=== PATIENT | female | born 1990 | race Caucasian/White ===

== ENCOUNTER 2016-05-11 21:21 | Emergency (ER) | payer MEDICAID, SELFPAY ==
[~2016-05-11 21:21] MED LIST: Iopamidol 370 76% 100 ML VIAL ONE; Sodium Chloride 0.9% 1,000 ML BAG ONE
[2016-05-11 22:32] LABS: #Basophils 0.1 thou/uL (0.0-0.2); #Eosinphils 0.2 thou/uL (0.0-0.7); #Lymphocytes 3.2 thou/uL (1.20-3.40); #Monocytes 0.5 thou/uL (0.11-0.59); #Neutrophils 2.7 thou/uL (1.40-6.50); %Basophils 1.1 % (0.0-1.0); %Eosinophils 2.5 % (0.0-10.0); %Lymphocytes 48.4 % (21.0-51.0); %Monocytes 7.1 % (0.0-10.0); %Neutrophils 40.9 % (42.0-75.0); Hemoglobin 14.6 g/dL (12.0-16.0); Mean Corpuscular HGB CONC 34.7 g/dL (32.0-36.0); Mean Corpuscular Hemoglobin 30.4 pg (27.0-31.0); Mean Corpuscular Volume 87.6 fl (81.0-99.0); Mean Platelet Volume 7.3 fL (7.4-10.4); Platelet Count 286 thou/uL (130-400); RBC Distribution Width 11.6 % (11.5-14.5); Red Blood Cell (RBC) Count 4.81 mill/uL (4.20-5.40); White Blood Cell (WBC) Count 6.5 thou/uL (4.8-10.8)
[2016-05-11 22:45] LABS: BHCG - Serum NEGATIVE (NEGATIVE); Pregs Control Background? CLEAR/WHITE (CLR/WHITE); Pregs Control Bar Appear? YES (CONTROL BAR)
[2016-05-11 22:51] LABS: ALT (SGPT) 12 U/L (0-55); AST (SGOT) 16 U/L (5-34); Albumin 4.5 g/dL (3.5-5.0); Alkaline Phosphatase 65 U/L (40-150); Anion Gap 17 mmol/L (10-20); BUN (Urea Nitrogen) 16 mg/dL (7.0-18.7); Bilirubin, Total 0.4 mg/dL (0.2-1.2); Calc. Creatinine Clearance 0 mL/min (70-130); Carbon Dioxide 24 mmol/L (22-29); Chloride 104 mmol/L (98-107); Estimated GFR-MDRD 86; Globulin 2.6 g/dL (2.4-3.5); Glucose 84 mg/dL (70-105); Potassium 3.9 mmol/L (3.5-5.1); Protein, Total 7.1 g/dL (6.0-8.3); Sodium 141 mmol/L (136-145)
--- NOTE | 2016-05-11 23:59 | ERRECORD ---
[facility] EMERGENCY RECORD HPI FALL (23:02 BPIC) CHIEF COMPLAINT: Patient presents for evaluation of fall. HISTORIAN: History provided by patient, pt fell from standing onto the left lateral chest wall 2 days prior to today. sharp pain, worse with breathing and now she has abdominal pain as well. worse with movement and with breathing. LOCATION: Symptoms are localized. QUALITY: Pain is sharp in nature. TIME COURSE: Sudden onset of symptoms, Symptoms are worsening. ROS (23:03 BPIC) CONSTITUTIONAL: Negative constitutional review of systems, Historian denies chills, denies fever. EYES: Negative eye review of systems. ENT: Negative ears, nose, throat review of systems. CARDIOVASCULAR: Negative cardiovascular review of systems, Historian denies chest pain, denies palpitations. RESPIRATORY: Negative respiratory review of systems, Historian denies cough, denies shortness of breath. GI: Negative gastrointestinal review of systems, Historian denies abdominal pain, denies constipation, denies diarrhea. MUSCULOSKELETAL: Historian reports injury. SKIN: Negative skin review of systems. NEUROLOGIC: Negative neurologic review of systems. ENDOCRINE: Negative endocrine review of systems. HEMO/LYMPHATIC: Normal hematologic/lymphatic system review. PSYCHIATRIC: Negative psychiatric review of systems. NOTES: All other ROS is negative except as listed in HPI. PAST MEDICAL HISTORY MEDICAL HISTORY: Notes: "born with a heart murmur", Flu vaccine not up to date, Tetanus not up to date, Pneumococcal vaccine not up to date. VERIFIED 05/11/16. (21:51 EROG) FEMALE SURGICAL HISTORY: Patient has no surgical history. VERIFIED 05/11/16. (21:51 EROG) PSYCHIATRIC HISTORY: Psychiatric history includes, anxiety, depression. VERIFIED 05/11/16. (21:51 EROG) SOCIAL HISTORY: Patient currently uses tobacco, Patient smokes cigarettes, Patient smokes 1/2 packs per day, Patient denies alcohol use, Patient currently uses drugs, abuses marijuana, Last used: 1.5 weeks. VERIFIED 05/11/16. NO LONGER USES MARIJUANA. (21:51 EROG) NOTES: I have reviewed and agree with the PMH/PSxH/FamHx/SocHx obtained by the nurse. (23:03 BPIC) KNOWN ALLERGIES KNDA &a-1R&a+25V*p+0X*d4938V*c202B*c15G*c2P*p-0X&a-25V&a+1R Name: Cindy Nguyen : 1990 F25 MedRec: [id number] AcctNum: [id number] Prepared: MonMay 11, 2016 23:49 by Interface Page 1 of 3 pMD [facility] EMERGENCY RECORD CURRENT MEDICATIONS (21:48 EROG) None VITAL SIGNS VITAL SIGNS: BP: 102/73, Pulse: 88, Resp: 16, Temp: 98.5 (Tympanic), Pain: 10 (Constant), O2 sat: 99 on Room Air, Time: 05/11/2016 21:43. (21:43 EROG) BP: 116/75, Pulse: 80, O2 sat: 99 on Room Air, Time: 05/11/2016 22:33. (22:33 EROG) BP: 125/82, Pulse: 86, Resp: 20, Pain: 3, O2 sat: 100 on Room Air, Time: 05/11/2016 23:10. (23:10 EROG) BP: 115/78, Pulse: 90, Resp: 18, Temp: 98.0, Pain: 3, O2 sat: 100 on RA, Time: 05/11/2016 23:42. (23:42 EROG) PHYSICAL EXAM (23:03 BPIC) CONSTITUTIONAL: Vital signs reviewed, Patient appears non toxic, Patient alert and oriented to person, place and time, Pt is in no apparent distress. HEAD: Head exam included findings of head atraumatic, normocephalic. EYES: Eye exam included findings of eyelids normal to inspection, Pupils equally round and reactive to light, Extraocular muscles intact. ENT: ENT exam normal, Nose exam normal, no nasal deformity, no bleeding from nares, Pharynx exam normal, Mouth exam normal, mucous membranes moist. NECK: Neck exam included findings of normal range of motion, Trachea midline. RESPIRATORY CHEST: Respiratory and chest exam normal, Breath sounds clear, No wheezing, No rales, Chest exam included findings of chest movement symmetrical, Chest expansion equal, Tenderness, moderate, to the left anterior chest, to the left lateral chest. CARDIOVASCULAR: Cardiovascular assessment normal, Cardiovascular exam included findings of heart rate regular rate and rhythm, Heart sounds normal, equal radial and DP pulses. ABDOMEN FEMALE: Abdominal exam included findings of abdomen tender, to the left upper quadrant, moderate intensity, Bowel sounds normal, no mass, no pulsatile masses, no peritoneal signs. BACK: Back exam included findings of normal inspection, range of motion normal, no costovertebral angle tenderness. UPPER EXTREMITY: Upper extremity exam included findings of inspection normal, Range of motion normal. LOWER EXTREMITY: Lower extremity exam included findings of inspection normal, Range of motion normal. NEURO: Neuro exam findings include patient oriented to person, place and time, Speech normal, no focal motor deficits, no focal sensory deficits. SKIN: Skin exam included findings of skin warm, dry, and normal &a-1R&a+25V*p+0X*d8404L*c202B*c15G*c2P*p-0X&a-25V&a+1R Name: Cindy Nguyen : 1990 F25 MedRec: [id number] AcctNum: [id number] Prepared: MonMay 11, 2016 23:49 by Interface Page 2 of 3 pMD [facility] EMERGENCY RECORD in color. PSYCHIATRIC: Psychiatric exam included findings of patient oriented to person place and time, Normal affect. RADIOLOGYINTERPRETATION (23:27 BPIC) ABDOMEN: Abdomen/pelvis CT scan, with contrast shows, Other findings: splenic contusion without surrounding hematoma or free fluid. MEDICATION ADMINISTRATION SUMMARY Drug Name: morphine injection, Dose Ordered: 4 mg, Route: IV Push, Status: Given, Time: 22:32 05/11/2016, Drug Name: *sodium chloride 0.9 % intravenous, Dose Ordered: 1 L, Route: IV Fluid Infusion, Status: Given, Time: 22:30 05/11/2016, *Additional information available in notes, Detailed record available in Medication Service section. DOCTOR NOTES (23:28 BPIC) TEXT: abd/chest wall contusion with splenic contusion as well. no laceration or active extravasation. tramadol and fu with pcp. I discussed the diagnosis with the patient prior to discharge. All questions were answered. There is no indication for admission currently and the patient will follow up with a primary care physician. Any pertinent labs or imaging were reviewed and dicussed with the patient. If any new or emergent symptoms occur, the patient will return to the emergency department. PROBLEM LIST No recorded problems DIAGNOSIS (23:29 BPIC) FINAL: PRIMARY: abdominal and chest wall contusion, ADDITIONAL: Splenic contusion. PRESCRIPTION (23:29 BPIC) traMADol: TABLET : 50 mg : ORAL : Quantity: 50 Unit: mg Route: ORAL Schedule: every 6 hours PRN Dispense: 20 Unit: tab(s) May substitute. Refills: No Refills . NOTES: No Refills. DISPOSITION PATIENT: Disposition Type: Discharge, Disposition: *Discharge Home, Condition: Good. (23:29 BPIC) Patient left the department. (23:47 EROG) [place]: BPIC=MD Meme, Jamison EROG=YING Fraser, Bhanu &a-1R&a+25V*p+0X*[id number]*c202B*c15G*c2P*p-0X&a-25V&a+1R Name: Cindy Nguyen : 1990 F25 MedRec: [id number] AcctNum: [id number] Prepared: MonMay 11, 2016 23:49 by Interface Page 3 of 3 pMD MTDD
--- NOTE | 2016-05-12 00:07 | PICIS ---
[facility] EMERGENCY RECORD TRIAGE (MonMay 11, 2016 21:48 EROG) TRIAGE NOTES: ACHING PAIN TO LEFT UPPER RIBS. FELL ON SIDE OF TUB TWO DAYS AGO. (MonMay 11, 2016 21:48 EROG) PATIENT: NAME: Cindy Nguyen, AGE: 25, GENDER: female, : Mon1990, TIME OF GREET: MonMay 11, 2016 21:21, PREFERRED LANGUAGE: Yemeni, ETHNICITY: Not or , FALL RISK: NO, ECODE BILLING MAP: [facility], SSN: [id number], KG WEIGHT: 52.16, HEIGHT/LENGTH: 152.40cm, BMI: 22.46, , , PERSON ID: [id number], PCP: NONE. (MonMay 11, 2016 21:48 EROG) Zip Code: [facility], PHONE: . (22:23) COMPLAINT: FALL, RIB PAIN. (MonMay 11, 2016 21:48 EROG) ADMISSION: URGENCY: 3 Urgent, ADMISSION SOURCE: Home, TRANSPORT: CAR, BED: ED -04. (MonMay 11, 2016 21:48 EROG) ASSESSMENT: Assessment: PAIN TO LEFT RIBS, Symptoms began 2 days ago. (21:51 EROG) PAIN: Patient complains of pain described as, aching, on a scale 0-10 patient rates pain as 10, Pain is constant, Aggravating factors:, Aggravating factors include LAYING ON SIDE. DEEP BREATHS, No relieving factors. (21:51 EROG) SIRS SCORING: Heart Rate 55-109 (0), Temp range 96.8-101.1 (0), respiratory rate 12-24 (0), Mental Status altered: no (0), Infection or Suspected Infection: No. (21:51 EROG) PROVIDERS: TRIAGE NURSE: Bhanu Guillermo RN. (MonMay 11, 2016 21:48 EROG) VITAL SIGNS: BP 102/73, Pulse 88, Resp 16, Temp 98.5, (Tympanic), Pain 10, (Constant), O2 Sat 99, on Room Air, Time 05/11/2016 21:43. (21:43 EROG) KNOWN ALLERGIES KNDA CURRENT MEDICATIONS (21:48 EROG) None VITAL SIGNS VITAL SIGNS: BP: 102/73, Pulse: 88, Resp: 16, Temp: 98.5 (Tympanic), Pain: 10 (Constant), O2 sat: 99 on Room Air, Time: 05/11/2016 21:43. (21:43 EROG) BP: 116/75, Pulse: 80, O2 sat: 99 on Room Air, Time: 05/11/2016 22:33. (22:33 EROG) BP: 125/82, Pulse: 86, Resp: 20, Pain: 3, O2 sat: 100 on Room Air, Time: 05/11/2016 23:10. (23:10 EROG) BP: 115/78, Pulse: 90, Resp: 18, Temp: 98.0, Pain: 3, O2 sat: 100 on RA, Time: 05/11/2016 23:42. (23:42 EROG) NURSING ASSESSMENT: RESPIRATORY/CHEST TRAUMA (21:53 EROG) CONSTITUTIONAL: Patient arrives ambulatory, Gait steady, History obtained from patient, Patient appears, in distress due to &a-1R&a+25V*p+0X*t6338T*c202B*c15G*c2P*p-0X&a-25V&a+1R Name: Cindy Nguyen : 1990 F25 MedRec: [id number] AcctNum: [id number] Prepared: MonMay 12, 2016 02:43 by Interface Page 1 of 9 pMD [facility] EMERGENCY RECORD pain, Patient cooperative, Patient alert, Oriented to person, place and time, Skin warm, Skin dry, Skin normal in color, Mucous membranes pink, Mucous membranes moist, Patient is well-groomed, Patient complains of left rib pain. MECHANISM OF INJURY: Mechanism of injury fall, from height less than 3 feet, landing on left side, fell when getting out of tub. PAIN: aching pain, to the left chest, on a scale 0-10 patient rates pain as 10, Pain exacerbated by, lying down, Pain exacerbated by, deep breaths, Nothing has been tried to alleviate the pain. RESPIRATORY/CHEST: Breath sounds clear, Respiratory assessment findings include respiratory effort easy, Respirations regular, Conversing normally, Neck and chest exam findings include trachea midline, Chest expansion equal, Chest movement symmetrical. THORACIC TRAUMA: Thoracic trauma assessment findings include chest movement symmetrical, Inspection findings include swelling, to left ribs, Light reddened vertical line on left ribs. NURSING PROCEDURE: DISCHARGE NOTE (23:42 EROG) DISCHARGE: Patient discharged to home, ambulating without assistance, family driving, accompanied by //partner, Summary of Care printed/ provided, Patient requested and was provided an electronic copy of Discharge Instructions, Transition record given to patient, Discharge instructions given to patient, Discharge instructions given to NAHUM MONTES DE OCA-JORDAN OTHER, Simple or moderate discharge teaching performed, by Angela GUILLERMO RN, Prescriptions given and instructions on side effects given, Name of prescription(s) given: TRAMADOL, Medication reconciliation form given, and reviewed with patient, Above person(s) verbalized understanding of discharge instructions and follow-up care. BELONGINGS: Belongings remain with patient, Valuables remain with patient. VITAL SIGNS: BP: 115, / 78, Pulse: 90, Resp: 18, Temp: 98.0, Pain: 3, O2 sat: 100, on: RA, Time: 1140. NURSING PROCEDURE: IV (22:28 AGAN) PATIENT IDENITIFIER: Patient actively involved in identification process, Patient's identity verified by patient stating name, Patient's identity verified by patient stating date, Patient's identity verified by hospital ID bracelet. IV SITE 1: IV therapy indicated for hydration, IV therapy indicated for medication administration, IV established, to the left antecubital, using a 20 gauge catheter, in one attempt, Saline lock established, Labs drawn at time of placement, labeled in the presence of the patient and sent to lab. NURSING PROCEDURE: NURSE NOTES (22:46 EROG) NURSES NOTES: Patient in no apparent distress, Patient states &a-1R&a+25V*p+0X*b8330J*c202B*c15G*c2P*p-0X&a-25V&a+1R Name: Cindy Nguyen : 1990 F25 MedRec: [id number] AcctNum: [id number] Prepared: [facility] May 12, 2016 02:43 by Interface Page 2 of 9 pMD [facility] EMERGENCY RECORD decreased pain, Notes: PATIENT STATES PAIN HAS DECREASED DOWN TO 3-4. IV INFUSING WELL. WAITING FOR SERUM HCG RESULT PRIOR TO CT. AT BEDSIDE. NURSING PROCEDURE: TRANSPORT TO TESTS PATIENT IDENTIFIER: Patient actively involved in identification process, Patient's identity verified by patient stating name, Patient's identity verified by patient stating date, Patient's identity verified by hospital ID bracelet. (22:57 EROG) TRANSPORT TO TESTS: Transport indicated to facilitate diagnosis, Patient transported to CT scan, via cart, Accompanied by x-ray communications technician. (22:57 EROG) FOLLOW-UP: After procedure, patient returned to emergency department. (23:06 EROG) ORDER DETAILS Order Name: CBC with Differential, Status: Active, Time: 22:16 05/11/2016, User: RATNA, - Ordered for: MD Valentine Bryan, - Entered by: MD Valentine Bryan - [facility] May 11, 2016 22:16, - Quantity: 1, Order Name: Comprehensive Metabolic Panel, Status: Active, Time: 22:16 05/11/2016, User: RATNA, - Ordered for: MD Valentine Bryan, - Entered by: MD Valentine Bryan - [facility] May 11, 2016 22:16, - Quantity: 1, Order Name: CT Chest Abd Pelvis W Con(Trauma), Status: Active, Time: 22:04 05/11/2016, User: RATNA, - Ordered for: MD Valentine Bryan, - Entered by: MD Valentine Bryan - [facility] May 11, 2016 22:04, - Quantity: 1, Order Name: Test, Serum (BHCG), Status: Active, Time: 22:04 05/11/2016, User: RATNA, - Ordered for: MD Valentine Bryan, - Entered by: MD Valentine Bryan - [facility] May 11, 2016 22:04, - Quantity: 1, Order Name: SALINE LOCK, Status: Done, Time: 22:41 05/11/2016, User: MEIN, - Ordered for: MD Valentine Bryan, - Entered by: MD Valentine Bryan - [facility] May 11, 2016 22:04, - Quantity: 1. MEDICATION ADMINISTRATION SUMMARY Drug Name: morphine injection, Dose Ordered: 4 mg, Route: IV Push, Status: Given, Time: 22:32 05/11/2016, Drug Name: *sodium chloride 0.9 % intravenous, Dose Ordered: 1 L, Route: IV Fluid Infusion, Status: Given, Time: 22:30 05/11/2016, *Additional information available in notes, Detailed record available &a-1R&a+25V*p+0X*l2598A*c202B*c15G*c2P*p-0X&a-25V&a+1R Name: Cindy Nguyen : 1990 F25 MedRec: [id number] AcctNum: [id number] Prepared: [facility] May 12, 2016 02:43 by Interface Page 3 of 9 pMD [facility] EMERGENCY RECORD in Medication Service section. MEDICATION SERVICE morphine injection: Order: morphine injection (morphine sulfate) - Dose: 4 mg : IV Push Ordered by: Jamison Valentine MD Entered by: Jamison Valentine MD MonMay 11, 2016 22:15 , Acknowledged by: Franck Wilson RN MonMay 11, 2016 22:31 Documented as given by: Franck Wilson RN MonMay 11, 2016 22:32 Patient, Medication, Dose, Route and Time verified prior to administration. Amount given: 4 mg, IV SITE #1 IVP, initial medication, Slowly, Pre-administration assessment shows O2 saturation reading 100%, Pre-administration assessment shows O2 AMT: R.A., Awake and alert- acceptable, Catheter placement confirmed via flush prior to administration, IV site without signs or symptoms of infiltration during medication administration, No swelling during administration, No drainage during administration, IV flushed after administration, Correct patient, time, route, dose and medication confirmed prior to administration, Patient advised of actions and side-effects prior to administration, Allergies confirmed and medications reviewed prior to administration, Patient tolerated procedure well, Patient in position of comfort, Side rails up, Cart in lowest position, Family at bedside. : Follow Up : Response assessment performed, No signs or symptoms of allergic reaction noted, Decreased pain, Eye Opening spontaneously, 4, Verbal Response oriented/conversive, 5, Motor Response obeys commands, 6, The GCS total is 15, O2 saturation reading 100%, O2 AMT: R.A., _IV SITE #1:_, Verbalized effective pain relief. Reports pain down from 10/10 to 4/10 scale. (23:15 AGAN) sodium chloride 0.9 % intravenous: Order: sodium chloride 0.9 % intravenous (0.9 % sodium chloride) - Dose: 1 L : IV Fluid Infusion Notes: (Bolus) Ordered by: Jamison Valentine MD Entered by: Jamison Valentine MD MonMay 11, 2016 22:14 , Acknowledged by: Franck Wilson RN MonMay 11, 2016 22:31 Documented as given by: Franck Wilson RN MonMay 11, 2016 22:30 Patient, Medication, Dose, Route and Time verified prior to administration. Amount given: 1000 ml, IV SITE #1 IV fluids established for hydration, IV SITE #1 into left antecubital, IV SITE #1 1st bag hung, amount 1 Liter hung, via primary tubing, via pump tubing, Awake and alert- acceptable, Catheter placement confirmed via flush prior to administration, IV site without signs or symptoms of infiltration during medication administration, No swelling during administration, No drainage during administration, IV flushed after administration, Correct patient, time, route, dose and medication confirmed prior to administration, Patient advised of actions and side-effects prior to &a-1R&a+25V*p+0X*t9690K*c202B*c15G*c2P*p-0X&a-25V&a+1R Name: Cindy Nguyen : 1990 F25 MedRec: [id number] AcctNum: [id number] Prepared: Angélica May 12, 2016 02:43 by Interface Page 4 of 9 pMD [facility] EMERGENCY RECORD administration, Allergies confirmed and medications reviewed prior to administration, Patient tolerated procedure well, Patient in position of comfort, Side rails up, Cart in lowest position, Family at bedside. : Follow Up : Response assessment performed, No signs or symptoms of allergic reaction noted, Decreased pain, Decreased symptoms, _IV SITE #1:_, IV fluid infusion discontinued, on MonMay 11, 2016 23:43, Total fluid hydration time IV site 1 1 hour, 15 minutes, ., Total amount infused: 736 ML, IV Discontinued with catheter intact. (23:41 EROG) HPI FALL (23:02 BPIC) CHIEF COMPLAINT: Patient presents for evaluation of fall. HISTORIAN: History provided by patient, pt fell from standing onto the left lateral chest wall 2 days prior to today. sharp pain, worse with breathing and now she has abdominal pain as well. worse with movement and with breathing. LOCATION: Symptoms are localized. QUALITY: Pain is sharp in nature. TIME COURSE: Sudden onset of symptoms, Symptoms are worsening. ROS (23:03 BPIC) CONSTITUTIONAL: Negative constitutional review of systems, Historian denies chills, denies fever. EYES: Negative eye review of systems. ENT: Negative ears, nose, throat review of systems. CARDIOVASCULAR: Negative cardiovascular review of systems, Historian denies chest pain, denies palpitations. RESPIRATORY: Negative respiratory review of systems, Historian denies cough, denies shortness of breath. GI: Negative gastrointestinal review of systems, Historian denies abdominal pain, denies constipation, denies diarrhea. MUSCULOSKELETAL: Historian reports injury. SKIN: Negative skin review of systems. NEUROLOGIC: Negative neurologic review of systems. ENDOCRINE: Negative endocrine review of systems. HEMO/LYMPHATIC: Normal hematologic/lymphatic system review. PSYCHIATRIC: Negative psychiatric review of systems. NOTES: All other ROS is negative except as listed in HPI. PAST MEDICAL HISTORY MEDICAL HISTORY: Notes: "born with a heart murmur", Flu vaccine not up to date, Tetanus not up to date, Pneumococcal vaccine not up to date. VERIFIED 05/11/16. (21:51 EROG) FEMALE SURGICAL HISTORY: Patient has no surgical history. VERIFIED 05/11/16. (21:51 EROG) PSYCHIATRIC HISTORY: Psychiatric history includes, anxiety, depression. VERIFIED 05/11/16. (21:51 EROG) &a-1R&a+25V*p+0X*y5605F*c202B*c15G*c2P*p-0X&a-25V&a+1R Name: Cindy Nguyen : 1990 F25 MedRec: [id number] AcctNum: [id number] Prepared: [facility] May 12, 2016 02:43 by Interface Page 5 of 9 pMD [facility] EMERGENCY RECORD SOCIAL HISTORY: Patient currently uses tobacco, Patient smokes cigarettes, Patient smokes 1/2 packs per day, Patient denies alcohol use, Patient currently uses drugs, abuses marijuana, Last used: 1.5 weeks. VERIFIED 05/11/16. NO LONGER USES MARIJUANA. (21:51 EROG) NOTES: I have reviewed and agree with the PMH/PSxH/FamHx/SocHx obtained by the nurse. (23:03 BPIC) PHYSICAL EXAM (23:03 BPIC) CONSTITUTIONAL: Vital signs reviewed, Patient appears non toxic, Patient alert and oriented to person, place and time, Pt is in no apparent distress. HEAD: Head exam included findings of head atraumatic, normocephalic. EYES: Eye exam included findings of eyelids normal to inspection, Pupils equally round and reactive to light, Extraocular muscles intact. ENT: ENT exam normal, Nose exam normal, no nasal deformity, no bleeding from nares, Pharynx exam normal, Mouth exam normal, mucous membranes moist. NECK: Neck exam included findings of normal range of motion, Trachea midline. RESPIRATORY CHEST: Respiratory and chest exam normal, Breath sounds clear, No wheezing, No rales, Chest exam included findings of chest movement symmetrical, Chest expansion equal, Tenderness, moderate, to the left anterior chest, to the left lateral chest. CARDIOVASCULAR: Cardiovascular assessment normal, Cardiovascular exam included findings of heart rate regular rate and rhythm, Heart sounds normal, equal radial and DP pulses. ABDOMEN FEMALE: Abdominal exam included findings of abdomen tender, to the left upper quadrant, moderate intensity, Bowel sounds normal, no mass, no pulsatile masses, no peritoneal signs. BACK: Back exam included findings of normal inspection, range of motion normal, no costovertebral angle tenderness. UPPER EXTREMITY: Upper extremity exam included findings of inspection normal, Range of motion normal. LOWER EXTREMITY: Lower extremity exam included findings of inspection normal, Range of motion normal. NEURO: Neuro exam findings include patient oriented to person, place and time, Speech normal, no focal motor deficits, no focal sensory deficits. SKIN: Skin exam included findings of skin warm, dry, and normal in color. PSYCHIATRIC: Psychiatric exam included findings of patient oriented to person place and time, Normal affect. EVENTS TRANSFER: Triage to Emergency Main ED -04. (MonMay 11, 2016 &a-1R&a+25V*p+0X*v8735Y*c202B*c15G*c2P*p-0X&a-25V&a+1R Name: Cindy Nguyen : 1990 F25 MedRec: [id number] AcctNum: [id number] Prepared: Anéglica May 12, 2016 02:43 by Interface Page 6 of 9 pMD [facility] EMERGENCY RECORD 21:48 EROG) Removed from Emergency Main ED -04. (23:47 EROG) RADIOLOGYINTERPRETATION (23:27 BPIC) ABDOMEN: Abdomen/pelvis CT scan, with contrast shows, Other findings: splenic contusion without surrounding hematoma or free fluid. DOCTOR NOTES (23:28 BPIC) TEXT: abd/chest wall contusion with splenic contusion as well. no laceration or active extravasation. tramadol and fu with pcp. I discussed the diagnosis with the patient prior to discharge. All questions were answered. There is no indication for admission currently and the patient will follow up with a primary care physician. Any pertinent labs or imaging were reviewed and dicussed with the patient. If any new or emergent symptoms occur, the patient will return to the emergency department. PROBLEM LIST No recorded problems DIAGNOSIS (23:29 BPIC) FINAL: PRIMARY: abdominal and chest wall contusion, ADDITIONAL: Splenic contusion. DISPOSITION PATIENT: Disposition Type: Discharge, Disposition: *Discharge Home, Condition: Good. (23:29 BPIC) Patient left the department. (23:47 EROG) INSTRUCTION (23:29 BPIC) DISCHARGE: CHEST WALL CONTUSION. FOLLOWUP: KARLA, -, Primary Care Referral Line, . SPECIAL: Thank you for choosing [facility] for your care today! Please follow up with your doctor in the next 2-3 days. Return to the emergency department with any emergent or worsening concerns. God Bless you!. PRESCRIPTION (23:29 BPIC) traMADol: TABLET : 50 mg : ORAL : Quantity: 50 Unit: mg Route: ORAL Schedule: every 6 hours PRN Dispense: 20 Unit: tab(s) May substitute. Refills: No Refills . NOTES: No Refills. IMAGING (23:45 EROG) *DISCHARGE INSTRUCTIONS RECEIPT: Image captured from scanner. *SUPPLY CHARGE SHEET: Image captured from scanner. &a-1R&a+25V*p+0X*f0727Z*c202B*c15G*c2P*p-0X&a-25V&a+1R Name: Cindy Nguyen : 1990 F25 MedRec: [id number] AcctNum: [id number] Prepared: MonMay 12, 2016 02:43 by Interface Page 7 of 9 pMD [facility] EMERGENCY RECORD ADMIN DIGITAL SIGNATURE: YING Guillermo Eugene. (22:48 EROG) YING Guillermo Eugene. (23:16 EROG) YING Guillermo Eugene. (23:46 EROG) MD Valentine Bryan. (MonMay 12, 2016 02:40 BPIC) RESULTS LABORATORY: CBC with Differential Collection DT: MonMay 11, 2016 22:30, White Blood Cell (WBC) Count 6.5 thou/uL, Range (4.8-10.8), Red Blood Cell (RBC) Count 4.81 mill/uL, Range (4.20-5.40), Hemoglobin 14.6 g/dL, Range (12.0-16.0), Hematocrit 42.1 %, Range (36.0-47.0), Mean Corpuscular Volume 87.6 fl, Range (81.0-99.0), Mean Corpuscular Hemoglobin 30.4 pg, Range (27.0-31.0), Mean Corpuscular HGB CONC 34.7 g/dL, Range (32.0-36.0), RBC Distribution Width 11.6 %, Range (11.5-14.5), Platelet Count 286 thou/uL, Range (130-400), *Mean Platelet Volume 7.3 - L fL, Range (7.4-10.4), *%Neutrophils 40.9 - L %, Range (42.0-75.0), %Lymphocytes 48.4 %, Range (21.0-51.0), %Monocytes 7.1 %, Range (0.0-10.0), %Eosinophils 2.5 %, Range (0.0-10.0), *%Basophils 1.1 - H %, Range (0.0-1.0), #Neutrophils 2.7 thou/uL, Range (1.40-6.50), #Lymphocytes 3.2 thou/uL, Range (1.20-3.40), #Monocytes 0.5 thou/uL, Range (0.11-0.59), #Eosinphils 0.2 thou/uL, Range (0.0-0.7), #Basophils 0.1 thou/uL, Range (0.0-0.2). (22:40 AGAN) Test, Serum (BHCG) Collection DT: MonMay 11, 2016 22:30, BHCG - Serum NEGATIVE , Range (NEGATIVE), Method of sensitivity- Indeterminant: results should be repeated, after 48 hours. Positive: results may be detected as early as 4-5 days before a first missed menses. Elimination of BHCG-, Elimination following first trimester D&C: 29-44 Days , Elimination following term : 8-24 Days . (22:48 BPIC) Comprehensive Metabolic Panel Collection DT: MonMay 11, 2016 22:30, Sodium 141 mmol/L, Range (136-145), Potassium 3.9 mmol/L, Range (3.5-5.1), Chloride 104 mmol/L, Range (98-107), Carbon Dioxide 24 mmol/L, Range (22-29), Anion Gap 17 mmol/L, Range (10-20), BUN (Urea Nitrogen) 16 mg/dL, Range (7.0-18.7), Creatinine 0.82 mg/dL, Range (0.6-1.1), Estimated GFR-MDRD 86 , Reference Range for Estimated GFR: Greater than 90, mL/min/1.73 m2 &a-1R&a+25V*p+0X*z2753H*c202B*c15G*c2P*p-0X&a-25V&a+1R Name: Cindy Nguyen : 1990 F25 MedRec: [id number] AcctNum: [id number] Prepared: MonMay 12, 2016 02:43 by Interface Page 8 of 9 pMD [facility] EMERGENCY RECORD NOTE: The MDRD equation has not been validated for use, with the elderly (over 70 years of age), women, patients with, serious comorbid condition or persons with extremes of body size, muscle, mass, or nutritional status. , Glucose 84 mg/dL, Range (70-105), Calcium 10.0 mg/dL, Range (7.8-10.44), Bilirubin, Total 0.4 mg/dL, Range (0.2-1.2), Protein, Total 7.1 g/dL, Range (6.0-8.3), NOTE: Plasma values are generally 0.3 to 0.5 g/dL higher than serum values, due to the presence of fibrinogen. , Albumin 4.5 g/dL, Range (3.5-5.0), Globulin 2.6 g/dL, Range (2.4-3.5), Alb/Glob Ratio 1.7 g/dL, Range (1.2-2.2), Alkaline Phosphatase 65 U/L, Range (40-150), AST (SGOT) 16 U/L, Range (5-34), ALT (SGPT) 12 U/L, Range (0-55). (23:20 BPIC) [place]: AGAN=YING Wilson, Franck BPIC=MD Meme, Jamison EROG=YING Guillermo, Bhanu &a-1R&a+25V*p+0X*i8533J*c202B*c15G*c2P*p-0X&a-25V&a+1R Name: Cindy Nguyen : 1990 F25 MedRec: [id number] AcctNum: [id number] Prepared: Angélica May 12, 2016 02:43 by Interface Page 9 of 9 pMD MTDD
--- NOTE | 2016-05-12 00:10 | ERRECORD ---
[facility] EMERGENCY RECORD HPI FALL (23:02 BPIC) CHIEF COMPLAINT: Patient presents for evaluation of fall. HISTORIAN: History provided by patient, pt fell from standing onto the left lateral chest wall 2 days prior to today. sharp pain, worse with breathing and now she has abdominal pain as well. worse with movement and with breathing. LOCATION: Symptoms are localized. QUALITY: Pain is sharp in nature. TIME COURSE: Sudden onset of symptoms, Symptoms are worsening. ROS (23:03 BPIC) CONSTITUTIONAL: Negative constitutional review of systems, Historian denies chills, denies fever. EYES: Negative eye review of systems. ENT: Negative ears, nose, throat review of systems. CARDIOVASCULAR: Negative cardiovascular review of systems, Historian denies chest pain, denies palpitations. RESPIRATORY: Negative respiratory review of systems, Historian denies cough, denies shortness of breath. GI: Negative gastrointestinal review of systems, Historian denies abdominal pain, denies constipation, denies diarrhea. MUSCULOSKELETAL: Historian reports injury. SKIN: Negative skin review of systems. NEUROLOGIC: Negative neurologic review of systems. ENDOCRINE: Negative endocrine review of systems. HEMO/LYMPHATIC: Normal hematologic/lymphatic system review. PSYCHIATRIC: Negative psychiatric review of systems. NOTES: All other ROS is negative except as listed in HPI. PAST MEDICAL HISTORY MEDICAL HISTORY: Notes: "born with a heart murmur", Flu vaccine not up to date, Tetanus not up to date, Pneumococcal vaccine not up to date. VERIFIED 05/11/16. (21:51 EROG) FEMALE SURGICAL HISTORY: Patient has no surgical history. VERIFIED 05/11/16. (21:51 EROG) PSYCHIATRIC HISTORY: Psychiatric history includes, anxiety, depression. VERIFIED 05/11/16. (21:51 EROG) SOCIAL HISTORY: Patient currently uses tobacco, Patient smokes cigarettes, Patient smokes 1/2 packs per day, Patient denies alcohol use, Patient currently uses drugs, abuses marijuana, Last used: 1.5 weeks. VERIFIED 05/11/16. NO LONGER USES MARIJUANA. (21:51 EROG) NOTES: I have reviewed and agree with the PMH/PSxH/FamHx/SocHx obtained by the nurse. (23:03 BPIC) KNOWN ALLERGIES KNDA &a-1R&a+25V*p+0X*[id number]*c202B*c15G*c2P*p-0X&a-25V&a+1R Name: Cindy Nguyen : 1990 F25 MedRec: [id number] AcctNum: [id number] Prepared: MonMay 11, 2016 23:49 by Interface Page 1 of 3 pMD [facility] EMERGENCY RECORD CURRENT MEDICATIONS (21:48 EROG) None VITAL SIGNS VITAL SIGNS: BP: 102/73, Pulse: 88, Resp: 16, Temp: 98.5 (Tympanic), Pain: 10 (Constant), O2 sat: 99 on Room Air, Time: 05/11/2016 21:43. (21:43 EROG) BP: 116/75, Pulse: 80, O2 sat: 99 on Room Air, Time: 05/11/2016 22:33. (22:33 EROG) BP: 125/82, Pulse: 86, Resp: 20, Pain: 3, O2 sat: 100 on Room Air, Time: 05/11/2016 23:10. (23:10 EROG) BP: 115/78, Pulse: 90, Resp: 18, Temp: 98.0, Pain: 3, O2 sat: 100 on RA, Time: 05/11/2016 23:42. (23:42 EROG) PHYSICAL EXAM (23:03 BPIC) CONSTITUTIONAL: Vital signs reviewed, Patient appears non toxic, Patient alert and oriented to person, place and time, Pt is in no apparent distress. HEAD: Head exam included findings of head atraumatic, normocephalic. EYES: Eye exam included findings of eyelids normal to inspection, Pupils equally round and reactive to light, Extraocular muscles intact. ENT: ENT exam normal, Nose exam normal, no nasal deformity, no bleeding from nares, Pharynx exam normal, Mouth exam normal, mucous membranes moist. NECK: Neck exam included findings of normal range of motion, Trachea midline. RESPIRATORY CHEST: Respiratory and chest exam normal, Breath sounds clear, No wheezing, No rales, Chest exam included findings of chest movement symmetrical, Chest expansion equal, Tenderness, moderate, to the left anterior chest, to the left lateral chest. CARDIOVASCULAR: Cardiovascular assessment normal, Cardiovascular exam included findings of heart rate regular rate and rhythm, Heart sounds normal, equal radial and DP pulses. ABDOMEN FEMALE: Abdominal exam included findings of abdomen tender, to the left upper quadrant, moderate intensity, Bowel sounds normal, no mass, no pulsatile masses, no peritoneal signs. BACK: Back exam included findings of normal inspection, range of motion normal, no costovertebral angle tenderness. UPPER EXTREMITY: Upper extremity exam included findings of inspection normal, Range of motion normal. LOWER EXTREMITY: Lower extremity exam included findings of inspection normal, Range of motion normal. NEURO: Neuro exam findings include patient oriented to person, place and time, Speech normal, no focal motor deficits, no focal sensory deficits. SKIN: Skin exam included findings of skin warm, dry, and normal &a-1R&a+25V*p+0X*[id number]*c202B*c15G*c2P*p-0X&a-25V&a+1R Name: Cindy Nguyen : 1990 F25 MedRec: [id number] AcctNum: [id number] Prepared: MonMay 11, 2016 23:49 by Interface Page 2 of 3 pMD [facility] EMERGENCY RECORD in color. PSYCHIATRIC: Psychiatric exam included findings of patient oriented to person place and time, Normal affect. RADIOLOGYINTERPRETATION (23:27 BPIC) ABDOMEN: Abdomen/pelvis CT scan, with contrast shows, Other findings: splenic contusion without surrounding hematoma or free fluid. MEDICATION ADMINISTRATION SUMMARY Drug Name: morphine injection, Dose Ordered: 4 mg, Route: IV Push, Status: Given, Time: 22:32 05/11/2016, Drug Name: *sodium chloride 0.9 % intravenous, Dose Ordered: 1 L, Route: IV Fluid Infusion, Status: Given, Time: 22:30 05/11/2016, *Additional information available in notes, Detailed record available in Medication Service section. DOCTOR NOTES (23:28 BPIC) TEXT: abd/chest wall contusion with splenic contusion as well. no laceration or active extravasation. tramadol and fu with pcp. I discussed the diagnosis with the patient prior to discharge. All questions were answered. There is no indication for admission currently and the patient will follow up with a primary care physician. Any pertinent labs or imaging were reviewed and dicussed with the patient. If any new or emergent symptoms occur, the patient will return to the emergency department. PROBLEM LIST No recorded problems DIAGNOSIS (23:29 BPIC) FINAL: PRIMARY: abdominal and chest wall contusion, ADDITIONAL: Splenic contusion. PRESCRIPTION (23:29 BPIC) traMADol: TABLET : 50 mg : ORAL : Quantity: 50 Unit: mg Route: ORAL Schedule: every 6 hours PRN Dispense: 20 Unit: tab(s) May substitute. Refills: No Refills . NOTES: No Refills. DISPOSITION PATIENT: Disposition Type: Discharge, Disposition: *Discharge Home, Condition: Good. (23:29 BPIC) Patient left the department. (23:47 EROG) [place]: BPIC=MD Meme, Jamison EROG=YING Fraser, Bhanu &a-1R&a+25V*p+0X*[id number]*c202B*c15G*c2P*p-0X&a-25V&a+1R Name: Cindy Nguyen : 1990 F25 MedRec: [id number] AcctNum: [id number] Prepared: MonMay 11, 2016 23:49 by Interface Page 3 of 3 pMD MTDD
--- NOTE | 2016-05-12 00:15 | CT ---
CT CHEST WITH CONTRAST CT ABDOMEN AND PELVIS WITH CONTRAST CT THORACIC SPINE WITH CONTRAST AND 3D REFORMATTED IMAGING CT LUMBAR SPINE WITH IV CONTRAST AND 3D REFORMATTED IMAGING 05/11/16 CLINICAL HISTORY: Fall with left sided pain. FINDINGS: The pulmonary parenchyma is free from consolidation. No effusion or pneumothorax. No evidence of ret roperitoneal hemorrhage. Thoracoabdominal aorta is normal in caliber. No acute posttraumatic sequela of the liver, pancreas, kidneys and adrenal glands. There is a subtle, focal hypodensity at the pos terior aspect of the spleen. No perisplenic hemorrhage. Prominent size and heterogeneity of the uter us and adnexa may be physiologic given patient's age. Minimal superior end plate height loss of L1 i s present, age indeterminate. Correlate clinically to exclude focal new onset pain. Moderate right c onvexity curvature of the thoracic spine is demonstrated. No significant body wall contusion. IMPRESSION: 1. Nonspecific small hypodensity involving the posterior aspect of the spleen. In light of the patient's injury and left flank pain, this could relate to a small area of contusion. However, there is no perisplenic hematoma. Finding measures approximately 12 mm. Subtle internal hyperdensity is p resent, and therefore an alternative diagnosis would be a splenic hemangioma or other incidental spl enic finding. A followup exam may be performed for confirmation of stability. 2. There is mild superior end plate height loss at L1, age indeterminate. Associated end plate irregularity demonstrates the appearance of degenerative change and therefore this may this may rela te to a chronic process with an associated Schmorl's node. Recommend clinical correlation to exclude focal new onset pain in this region. 3. Otherwise no definite acute process. POS: NWK
== END 2016-05-11 23:42 | disposition home or self-care (01) ==
LOC: MADERS 21:21
DX: S36.029A Unspecified contusion of spleen, initial encounter (principal); S20.212A Contusion of left front wall of thorax, initial encounter; S30.1XXA Contusion of abdominal wall, initial encounter; F41.9 Anxiety disorder, unspecified; F32.9 Major depressive disorder, single episode, unspecified; W19.XXXA Unspecified fall, initial encounter; F17.210 Nicotine dependence, cigarettes, uncomplicated
CPT/HCPCS: 71260; 74177; 80053; 84703; 85025; 96361; 96374; J2270; J7050

== ENCOUNTER 2019-03-07 00:54 | Emergency (ER) | payer SELFPAY ==
[2019-03-07 01:40] LABS: #Basophils 0.1 thou/uL (0.0-0.2); #Eosinphils 0.1 thou/uL (0.0-0.7); #Lymphocytes 2.7 thou/uL (1.20-3.40); #Monocytes 0.4 thou/uL (0.11-0.59); #Neutrophils 2.2 thou/uL (1.40-6.50); %Basophils 1.4 % (0.0-1.0); %Eosinophils 1.6 % (0.0-10.0); %Monocytes 7.4 % (0.0-10.0); %Neutrophils 40.6 % (42.0-75.0); BHCG - Serum Negative (NEGATIVE); Hemoglobin 13.5 g/dL (12.0-16.0); Mean Corpuscular HGB CONC 31.7 g/dL (32.0-36.0); Mean Corpuscular Hemoglobin 28.6 pg (27.0-31.0); Mean Corpuscular Volume 90.2 fL (78.0-98.0); Mean Platelet Volume 6.7 fL (7.4-10.4); Platelet Count 294 thou/uL (130-400); Pregs Control Background? CLEAR/WHITE (CLR/WHITE); Pregs Control Bar Appear? YES (CONTROL BAR); RBC Distribution Width 11.9 % (11.5-14.5); Red Blood Cell (RBC) Count 4.72 mill/uL (4.20-5.40); White Blood Cell (WBC) Count 5.5 thou/uL (4.8-10.8)
[2019-03-07 01:57] LABS: ALT (SGPT) 18 U/L (8-55); AST (SGOT) 18 U/L (5-34); Acetaminophen Less than 6.0 mcg/mL (10.0-30.0); Albumin 4.3 g/dL (3.5-5.0); Alcohol Less than 10 mg/dL (Less than 10); Alkaline Phosphatase 52 U/L (40-110); Anion Gap 17 mmol/L (10-20); BUN (Urea Nitrogen) 21 mg/dL (7.0-18.7); Bilirubin, Total 0.4 mg/dL (0.2-1.2); Calc. Creatinine Clearance 0 mL/min (70-130); Calcium 9.2 mg/dL (7.8-10.44); Carbon Dioxide 21 mmol/L (22-29); Chloride 104 mmol/L (98-107); Estimated GFR-MDRD 71; Glucose 149 mg/dL (70-105); Salicylate Less than 8.0 mg/dL (15.0-30.0); Sodium 138 mmol/L (136-145)
[2019-03-07 02:10] LABS: Globulin 2.4 g/dL (2.4-3.5); Protein, Total 6.7 g/dL (6.0-8.3)
[2019-03-07 02:33] LABS: Bilirubin Negative (Negative); Blood, Urine Negative (Negative); Clarity Clear (Clear); Glucose, Urine (Dipstick) Negative (Negative); Leukocyte Negative (Negative); Nitrite Negative (Negative); Protein, Urine (Dipstick) Negative (Neg-Trace); Urobilinogen 0.2 mg/dL (Less than 2)
[2019-03-07 02:40] LABS: Amphetamine Detected (NotDetected); Barbiturates Screen Not Detected (NotDetected); Benzodiazepine Screen Not Detected (NotDetected); Cocaine Metabolite Screen Not Detected (NotDetected); Medtox Control Line Valid? VALID (VALID); Methadone Not Detected (NotDetected); Methamphetamine Detected (NotDetected); Opiate Screen Not Detected (NotDetected); Oxycodone Screen Not Detected (NotDetected); Phencyclidine (PCP) Not Detected (NotDetected); THC/Cannabinoid Screen Detected (NotDetected); Tricyclic Screen Detected (NotDetected)
== END 2019-03-07 03:00 | disposition left against medical advice (07) ==
LOC: MADERS 00:54
DX: T43.592A Poisoning by other antipsychotics and neuroleptics, intentional self-harm, initial encounter (principal); F41.9 Anxiety disorder, unspecified; F32.9 Major depressive disorder, single episode, unspecified; F17.210 Nicotine dependence, cigarettes, uncomplicated
CPT/HCPCS: 80053; 80306; 80307; 81003; 82550; 84443; 84703; 85025; 93005; 96360